=== PATIENT | female | born 1955 | race Caucasian/White ===

== ENCOUNTER → 2021-09-23 | Day surgery (SDC) | payer OTHER ==
[~2021-09-23] VITALS: Ht 162.6 cm; Wt 78.6 kg
[~2021-09-23] MED LIST: ALLOPURINOL100 MG PO; CLARITIN10 MG PO; FIBER SELECT G1 EACH PO; K-TAB ER10 MEQ PO; LISINOPRIL-HCT1 EAC2 PO; MAXIMUM DAILY1 EAC1 PO; MELOXICAM15 MG PO; METFORMIN HCL500 MG PO; OMEPRAZOLE40 MG PO; PROZAC20 MG PO; TOPROL XL 25MG25 MG PO; TRIAMCINOLONE A15 G2 TOP; WELLBUTRIN XL300 MG PO; ZOCOR20 MG PO
== END | disposition home or self-care (01) ==
LOC: FAS 06:21
DX: Z12.11 Encounter for screening for malignant neoplasm of colon (principal); D12.2 Benign neoplasm of ascending colon; M19.071 Primary osteoarthritis, right ankle and foot; J45.909 Unspecified asthma, uncomplicated; K21.9 Gastro-esophageal reflux disease without esophagitis; M10.9 Gout, unspecified; I10 Essential (primary) hypertension; E78.00 Pure hypercholesterolemia, unspecified; E11.9 Type 2 diabetes mellitus without complications; E66.9 Obesity, unspecified; F17.200 Nicotine dependence, unspecified, uncomplicated; Z88.1 Allergy status to other antibiotic agents; Z88.2 Allergy status to sulfonamides; Z98.51 Tubal ligation status
CPT/HCPCS: J2250; J2704; J7120